=== PATIENT | female | born 1940 | race Caucasian/White ===

== ENCOUNTER 2017-09-03 06:40 | Day surgery (SDC) | payer MEDICARE, BC ==
[2017-09-03] MEDS ORDERED: Glycopyrrolate 0.2 MG/ML 2 ML SDV IVPUSH ONE (07:30)
[2017-09-03] MEDS ORDERED: Cyanocobalamin (Vitamin B12) 1,000 MCG/ML SDV IM ONE (07:30)
[2017-09-03] MEDS ORDERED: Lactated Ringers 1,000 ML IV SCH (07:30)
[2017-09-03] MEDS ORDERED: Propofol 200 MG/20 ML SDV ONE (07:49)
[2017-09-03] MEDS ORDERED: fentaNYL 100 MCG/2 ML SDV ONE (07:49)
[2017-09-03] MEDS ORDERED: MVI, Adult with Vitamin K 10 ML, Thiamine 200 MG, Chromium/Copper/Mang/Selen/Zn 1 ML in... IV ONE ×8 (08:15→08:30)
[2017-09-03] MEDS ORDERED: MVI, Adult with Vitamin K 10 ML, Thiamine 200 MG, Chromium/Copper/Mang/Selen/Zn 1 ML in... IV SCH ×4 (08:30)
[2017-09-03 09:57] VITALS: BP 153/78
--- NOTE | 2017-09-04 11:58 | OR ---
DATE OF PROCEDURE: 09/03/2017 PREOPERATIVE DIAGNOSIS: Severe gastroesophageal reflux symptoms, status post placement of adjustable gastric band. POSTOPERATIVE DIAGNOSES: Marked dilation of esophagus above laparoscopic adjustable gastric band with marked esophageal inflammation and retained esophageal gastric food and fluid. OPERATIVE PROCEDURES: Esophagogastroduodenoscopy with; 1. Removal of foreign body (retained food above band), (21638). 2. Biopsies of antrum for CLOtest, (20410). ANESTHESIA: IV sedation. INDICATIONS FOR PROCEDURE: The patient is status post placement of laparoscopic adjustable gastric band. She presents now with progressive worsening of reflux symptoms. She also reports that she is having quite a bit of coughing and appears to probably been having some episodes of aspiration of esophageal contents, particularly when she is sleeping, and the plan is to proceed with upper GI endoscopy with biopsies as indicated. Potential risks including bleeding and perforation were discussed, and the patient wishes to proceed. DETAILS OF PROCEDURE: The patient was taken to the operating room and placed in a left lateral decubitus position. IV sedation was administered, after which the upper GI endoscope was passed orally through the length of the esophagus and into the stomach with retroflexion view of the fundus, and thereafter through the pyloric channel and into the junction of the third and fourth portions of the duodenum. Findings included markedly diffuse dilation of the esophagus. This was contained of some both solid and liquid food as well as some bile within the esophagus, as well as the gastric pouch above the imprint of the band. The distal one-third of the esophagus and the gastric mucosa above the band were diffusely reddened and friable and easily bled with any abrasion of the scope even in a gentle manner across the surface. The band had been completely deflated, and there was no mechanical obstruction through the imprint of the band, i.e. there was no mechanical obstruction causing the above problem. The remainder of the stomach and duodoneal was unremarkable. Biopsies were obtained from the antrum and sent for CLOtest for H pylori. The food which had been present in the area above the band was mobilized downward away out of the esophagus to limit aspiration risk in the immediate postprocedure period. The scope was then withdrawn. Following this, later in the day, discussion was held with the patient and family. This appeared to be a fairly urgent situation in terms of removal of the band as she is likely to develop acute and chronic pulmonary complications as well as esophageal complications in the near term and the plan will be to have them come back on for band removal and conversion to the Sydney-en-Y gastric bypass. The latter, I think, will be important as she will be able to plan with the band now being deflated, she has gained 17 pounds in a relatively short period, and the gastric bypass will reverse that process. Canelo Lang MD /[id number]
== END 2017-09-03 10:42 | disposition home or self-care (01) ==
LOC: JP.SDS 06:40
PROVIDERS: ATTEND Surgery
DX: K21.9 Gastro-esophageal reflux disease without esophagitis (principal); K20.9 Esophagitis, unspecified; K22.8 Other specified diseases of esophagus; Z98.84 Bariatric surgery status
CPT/HCPCS: 36415; 43239; 43247; 80053; 83735; 83880; 84100; 85027; 86850; 86900; 86901; 87081; J2704; J3010; J3420; J7120; J3490

== ENCOUNTER 2017-09-06 05:31 | Inpatient (IN) | payer MEDICARE, BC ==
[~2017-09-06 05:31] MED LIST: Acetaminophen 500 MG Tab PO ONE; Celecoxib 200 MG Cap PO ONE; Gabapentin 300 MG Cap PO ONE; Scopolamine 1.5 MG Transdermal Patch TOP SCH
[2017-09-06] MEDS ORDERED: Dextrose 5%-Lactated Ringers 1,000 ML IV SCH (06:00)
[2017-09-06] MEDS ORDERED: cefOXitin 2 GM Vial ONE (06:44)
[2017-09-06] MEDS ORDERED: Bupivacaine 0.5%/EPINEPHrine 1:200,000 50 ML MDV ONE (06:45)
[2017-09-06] MEDS ORDERED: Albuterol/Ipratropium 3.0-0.5 MG/3 ML Neb Soln NEB ONE (07:00)
[2017-09-06] MEDS ORDERED: cefOXitin 2 GM in Sodium Chloride 0.9% 50 ML IV ONE (07:00)
[2017-09-06] MEDS ORDERED: fentaNYL 250 MCG/5 ML SDV ONE ×2 (07:02→08:29)
[2017-09-06] MEDS ORDERED: Neostigmine Methylsulfate 1 MG/ML 5 ML Syringe ONE (07:02)
[2017-09-06] MEDS ORDERED: Dexamethasone 4 MG/ML SDV ONE (07:02)
[2017-09-06] MEDS ORDERED: Succinylcholine 200 MG/10 ML MDV ONE (07:02)
[2017-09-06] MEDS ORDERED: Propofol 200 MG/20 ML SDV ONE (07:02)
[2017-09-06] MEDS ORDERED: Ondansetron 4 MG/2 ML SDV ONE (07:02)
[2017-09-06] MEDS ORDERED: Rocuronium 50 MG/5 ML Vial ONE ×2 (07:02→08:29)
[2017-09-06] MEDS ORDERED: Glycopyrrolate 0.2 MG/ML 5 ML MDV ONE (07:02)
[2017-09-06] MEDS ORDERED: Meropenem 500 MG SDV ONE ×2 (07:06→08:16)
[2017-09-06] MEDS ORDERED: Ketamine 500 MG/5 ML MDV IV SCH (07:30)
[2017-09-06] MEDS ORDERED: Lidocaine 0.4%/D5W 2 GM/500 ML BAG IV SCH (07:30)
[2017-09-06] MEDS ORDERED: Ropivacaine 50 ML, Dexamethasone 8 MG, EPINEPHrine 0.4 MG, Sodium Chloride 0.9% 27.6 ML NERVRT SCH ×4 (07:30)
[2017-09-06] MEDS ORDERED: Lidocaine 2% 100 MG/5 ML Syringe IVPUSH ONE (07:30)
[2017-09-06] MEDS ORDERED: HYDROmorphone/Normal Saline 15 MG/30 ML PCA IV PRN (08:32)
[2017-09-06] MEDS ORDERED: Naloxone 0.4 MG/ML SDV IV PRN (13:35)
[2017-09-06] MEDS ORDERED: Nitroglycerin 0.4 MG Tab.SL SL PRN (13:42)
[2017-09-06] MEDS ORDERED: diphenhydrAMINE 50 MG/ML SDV IVPUSH PRN (14:00)
[2017-09-06] MEDS ORDERED: Metoclopramide 10 MG/2 ML SDV IVPUSH PRN (14:00)
[2017-09-06] MEDS ORDERED: hydrOXYzine HCl 100 MG/2 ML SDV IM PRN (14:00)
[2017-09-06] MEDS ORDERED: Albuterol/Ipratropium 3.0-0.5 MG/3 ML Neb Soln INH PRN (14:00)
[2017-09-06] MEDS ORDERED: Labetalol 20 MG/4 ML Syringe IVPUSH PRN (14:00)
[2017-09-06] MEDS: cefOXitin 2 GM in Sodium Chloride 0.9% 50 ML IV SCH ×2 (14:19→21:00)
[2017-09-06] MEDS: Albuterol/Ipratropium 3.0-0.5 MG/3 ML Neb Soln INH SCH ×2 (14:48→21:02)
[2017-09-06] MEDS ORDERED: Pantoprazole 40 MG Vial IVPUSH SCH (16:00)
[2017-09-06] MEDS ORDERED: MVI, Adult with Vitamin K 10 ML, Thiamine 200 MG, Chromium/Copper/Mang/Selen/Zn 1 ML in... IV SCH ×4 (16:00)
[2017-09-06] MEDS: Gabapentin 250 MG/5 ML Solution ML 470 ML Bottle PO SCH ×2 (16:24→21:22)
[2017-09-06] MEDS: Acetaminophen Soln 650 MG/20.3 ML UD Cup PO SCH ×2 (16:24→21:20)
[2017-09-06] MEDS: Heparin Sodium 5,000 Units/ML Vial SUBCUT SCH (16:24)
[2017-09-06] MEDS: Ondansetron 4 MG/2 ML SDV IVPUSH PRN ×2 (16:33→20:50)
[2017-09-06] MEDS: Arformoterol 15 MCG/2 ML Neb Soln INH SCH (21:04)
[2017-09-06] MEDS: Budesonide 0.5 MG/2 ML Neb Susp INH SCH (21:11)
[2017-09-06] MEDS: Montelukast 10 MG Tab PO SCH (21:20)
[2017-09-06] MEDS: Dextrose 5%-Lactated Ringers 1,000 ML IV SCH (22:46)
[2017-09-07] MEDS: cefOXitin 2 GM in Sodium Chloride 0.9% 50 ML IV SCH ×5 (03:47→20:36)
[2017-09-07] MEDS: Acetaminophen Soln 650 MG/20.3 ML UD Cup PO SCH ×4 (03:50→21:07)
[2017-09-07] MEDS: Heparin Sodium 5,000 Units/ML Vial SUBCUT SCH ×2 (03:50→16:15)
[2017-09-07] MEDS ORDERED: Iohexol 647 MG/ML 50 ML SDV PO STA (04:08)
[2017-09-07] MEDS: Dextrose 5%-Lactated Ringers 1,000 ML IV SCH (04:57)
--- NOTE | 2017-09-07 07:08 | PCM.PN ---
- General Info Date of Service: 09/07/17 Admission Dx/Problem (Free Text): Obesity. Removal of gastric band. Subjective Update: Patient is POD #1, is up, ambulating, and urinating. The Abebe catheter was removed last night. She slept through the night and her vitals were stable. She did have an episode of vomiting with her first dose of pain medication from the FRUIT OR NUT GROWER although this was her only episode and she has used the FRUIT OR NUT GROWER since. She was experiencing blurred vision last night that subsided when the Lidocaine was discontinued. She will start today on a step 2 diet with nothing thicker than milk or a protein shake. Functional Status: Reports: Pain Controlled (Going to be switching to oral pain medication today.), Tolerating Diet, Ambulating, Urinating, Incentive Spirometry - Review of Systems General: Reports: No Symptoms HEENT: Reports: No Symptoms Pulmonary: Reports: No Symptoms Cardiovascular: Reports: No Symptoms Gastrointestinal: Reports: No Symptoms Genitourinary: Reports: No Symptoms Musculoskeletal: Reports: No Symptoms Skin: Reports: No Symptoms Neurological: Reports: No Symptoms Psychiatric: Reports: No Symptoms Systems Review Comment:: Remainder of ROS is negative for any pertinent positives or negatives. - Patient Data Vitals - Most Recent: Last Vital Signs Temp 99.3 F 09/07/17 02:00 Pulse 76 09/07/17 06:00 Resp 18 09/07/17 06:00 BP 171/68 H 09/07/17 06:00 Pulse Ox 91 L 09/07/17 06:00 Weight - Most Recent: 227 lb 12.8 oz I&O - Last 24 Hours: Intake & Output 09/06/17 09/07/17 09/07/17 22:59 06:59 14:59 Intake Total 1767 1532 Output Total 430 310 Balance 1337 1222 Lab Results Last 24 Hours: Laboratory Results - last 24 hr 09/07/17 09/07/17 09/07/17 Range/Units 05:21 05:21 05:21 WBC 14.0 H (4.5-11.0) K/uL RBC 4.58 (3.30-5.50) M/uL Hgb 12.6 (12.0-15.0) g/dL Hct 39.8 (36.0-48.0) % MCV 87 (80-98) fL MCH 28 (27-31) pg MCHC 32 (32-36) % Plt Count 251 (150-400) K/uL Neut % (Auto) 79 H (36-66) % Lymph % (Auto) 7 L (24-44) % [place] % (Auto) 14 H (2-6) % Eos % (Auto) 0 L (2-4) % Baso % (Auto) 0 (0-1) % Sodium 138 L (140-148) mmol/L Potassium 3.6 (3.6-5.2) mmol/L Chloride 104 (100-108) mmol/L Carbon Dioxide 26 (21-32) mmol/L Anion Gap 11.6 (5.0-14.0) mmol/L BUN 10 (7-18) mg/dL Creatinine 1.0 (0.6-1.0) mg/dL Est Cr Clr Drug Dosing 39.33 mL/min Estimated GFR (MDRD) 54 L (>60) Glucose 140 H (74-106) mg/dL Calcium 7.8 L (8.5-10.1) mg/dL Phosphorus 3.0 (2.5-4.9) mg/dL Magnesium 1.6 L (1.8-2.4) mg/dL Total Bilirubin 0.3 (0.2-1.0) mg/dL AST 47 H D (15-37) U/L ALT 56 D (12-78) U/L Alkaline Phosphatase 57 (46-116) U/L NT-Pro-B Natriuret Pep 50 (5-450) pg/mL Total Protein 6.2 L (6.4-8.2) g/dL Albumin 2.9 L (3.4-5.0) g/dL Globulin 3.3 (2.3-3.5) g/dL Albumin/Globulin Ratio 0.9 L (1.2-2.2) Med Orders - Current: Current Medications Acetaminophen (Tylenol) 650 mg PO Q6H [facility] Last Admin: 09/07/17 03:50 Dose: 650 mg Albuterol/Ipratropium (Duoneb 3.0-0.5 Mg/3 Ml) 3 ml INH QIDRT [facility] Last Admin: 09/06/17 21:02 Dose: 3 ml Albuterol/Ipratropium (Duoneb 3.0-0.5 Mg/3 Ml) 3 ml INH ASDIRECTED PRN PRN Reason: BREATHING Arformoterol Tartrate (Brovana) 15 mcg INH BIDRT [facility] Last Admin: 09/06/17 21:04 Dose: 15 mcg Budesonide (Pulmicort) 0.5 mg INH BIDRT [facility] Last Admin: 09/06/17 21:11 Dose: 0.5 mg Celecoxib (Celebrex) 200 mg PO DAILY@0800 [facility] Cyanocobalamin (Vitamin B12) 1,000 mcg IM ONETIME ONE Stop: 09/08/17 09:01 Diphenhydramine HCl (Benadryl) 25 - 50 mg IVPUSH Q4H PRN PRN Reason: ITCHING Gabapentin (Neurontin) 300 mg PO TID [facility] Last Admin: 09/06/17 21:22 Dose: 300 mg Heparin Sodium (Porcine) (Heparin Sodium) 5,000 units SUBCUT Q12H [facility] Last Admin: 09/07/17 03:50 Dose: 5,000 units Hydromorphone HCl (Dilaudid [employer] 15 Mg In Ns 30 Ml) 0 mg IV ASDIRECTED PRN; Protocol PRN Reason: Pain Last Admin: 09/06/17 08:59 Dose: 0.3 mg Hydroxyzine HCl (Vistaril) 75 - 100 mg IM Q4H PRN PRN Reason: pain Dextrose/Lactated Ringer's (Dextrose 5%-Lactated Ringers) 1,000 mls @ 175 mls/ hr IV ASDIRECTED [facility] Last Admin: 09/07/17 04:57 Dose: 175 mls/hr Multivitamins/Minerals 10 ml/Thiamine HCl 200 mg/ Chromium/Copper/Manganese/ Seleni/Zn 1 ml/ Dextrose/Lactated Ringer's 1,013 mls @ 175 mls/hr IV DAILY@ 1600 [facility] Last Admin: 09/06/17 16:35 Dose: 175 mls/hr Cefoxitin Sodium 2 gm/ Sodium (Chloride) 50 mls @ 100 mls/hr IV Q6H [facility] Last Admin: 09/07/17 03:47 Dose: 100 mls/hr Isosorbide Mononitrate (Imdur) 30 mg PO DAILY [facility] Labetalol HCl (Normodyne) 5 - 15 mg IVPUSH Q1H PRN PRN Reason: SBP over 160 OR DBP over 95 Metoclopramide HCl (Reglan) 10 mg IVPUSH Q6H PRN PRN Reason: NAUSEA NOT CONTROL BY ZOFRAN Miscellaneous Information (Remove Patch) 1 ea TRDERM ONETIME ONE Stop: 09/08/17 10:01 Montelukast Sodium (Singulair) 10 mg PO BEDTIME [facility] Last Admin: 09/06/17 21:20 Dose: 10 mg Naloxone HCl (Narcan) 0.1 mg IV ASDIRECTED PRN PRN Reason: decreased respiratory rate Nitroglycerin (Nitrostat) 0.4 mg SL ASDIRECTED PRN PRN Reason: CHEST PAIN Scopolamine Patch (Check) 1 each TOP DAILY [facility] Stop: 09/08/17 14:01 Ondansetron HCl (Zofran) 4 mg IVPUSH Q4H PRN PRN Reason: Nausea/Vomiting Last Admin: 09/06/17 20:50 Dose: 4 mg Pantoprazole Sodium (Protonix Iv) 40 mg IVPUSH Q24H [facility] [place] Last Admin: 09/06/17 16:25 Dose: 40 mg Scopolamine (Transderm-Scop) 1.5 mg TOP Q72H [facility] Stop: 09/09/17 05:00 Last Admin: 09/06/17 06:48 Dose: 1.5 mg Discontinued Medications Acetaminophen (Tylenol Extra Strength) 1,000 mg PO ONETIME ONE Stop: 09/06/17 05:31 Last Admin: 09/06/17 06:48 Dose: 1,000 mg Albuterol/Ipratropium (Duoneb 3.0-0.5 Mg/3 Ml) 3 ml NEB ONETIME ONE Stop: 09/06/17 07:01 Last Admin: 09/06/17 07:23 Dose: 3 ml Bupivacaine HCl/Epinephrine Bitart (Marcaine 0.5%/Epinephrine 1:200,000) Confirm Administered Dose 50 ml .ROUTE .STK-MED ONE Stop: 09/06/17 06:46 Cefoxitin Sodium (Mefoxin) Confirm Administered Dose 2 gm .ROUTE .STK-MED ONE Stop: 09/06/17 06:45 Celecoxib (Celebrex) 200 mg PO ONETIME ONE Stop: 09/06/17 05:31 Last Admin: 09/06/17 06:45 Dose: 200 mg Ropivacaine 50 ml/Dexamethasone 8 mg/Epinephrine HCl 0.4 mg/ Sodium Chloride 27.6 ml 0 ml NERVRT ASDIRECTED [facility] Last Admin: 09/06/17 07:55 Dose: 80 syringe Dexamethasone (Dexamethasone) Confirm Administered Dose 4 mg .ROUTE .STK-MED ONE Stop: 09/06/17 07:03 Fentanyl (Sublimaze) Confirm Administered Dose 250 mcg .ROUTE .STK-MED ONE Stop: 09/06/17 07:03 Fentanyl (Sublimaze) Confirm Administered Dose 250 mcg .ROUTE .STK-MED ONE Stop: 09/06/17 08:30 Gabapentin (Neurontin) 300 mg PO ONETIME ONE Stop: 09/06/17 05:31 Last Admin: 09/06/17 06:46 Dose: 300 mg Glycopyrrolate (Robinul) Confirm Administered Dose 1 mg .ROUTE .STK-MED ONE Stop: 09/06/17 07:03 Lidocaine HCl/Dextrose (Lidocaine 2 Gm/D5w 500 Ml) 2 gm in 500 mls @ 30 mls/hr IV .[id number] [facility] Stop: 09/07/17 00:09 Last Admin: 09/06/17 13:46 Dose: 2 mg/min, 30 mls/hr Ketamine HCl 100 mg/ Sodium (Chloride) 100 mls @ 15 mls/hr IV ASDIRECTED [facility] Dextrose/Lactated Ringer's (Dextrose 5%-Lactated Ringers) 1,000 mls @ 100 mls/ hr IV ASDIRECTED [facility] Last Admin: 09/06/17 06:49 Dose: 100 mls/hr Cefoxitin Sodium 2 gm/ Sodium (Chloride) 50 mls @ 100 mls/hr IV ONETIME ONE Stop: 09/06/17 07:29 Last Admin: 09/06/17 07:36 Dose: 100 mls/hr Iohexol (Omnipaque-300) 50 ml PO .ASDIRECTED [facility] Stop: 09/07/17 04:09 Last Admin: 09/07/17 04:21 Dose: 50 ml Ketamine HCl (Ketalar) 25 mg IV ASDIRECTED [facility] Lidocaine HCl (Xylocaine 2%) 100 mg IVPUSH ONETIME ONE Stop: 09/06/17 07:31 Last Admin: 09/06/17 18:47 Dose: Not Given Meropenem (Merrem) Confirm Administered Dose 500 mg .ROUTE .STK-MED ONE Stop: 09/06/17 07:07 Last Admin: 09/06/17 08:22 Dose: 500 mg Meropenem (Merrem) Confirm Administered Dose 500 mg .ROUTE .STK-MED ONE Stop: 09/06/17 08:17 Last Admin: 09/06/17 10:30 Dose: 500 mg Neostigmine Methylsulfate (Neostigmine) Confirm Administered Dose 5 mg .ROUTE .STK-MED ONE Stop: 09/06/17 07:03 Ondansetron HCl (Zofran) Confirm Administered Dose 4 mg .ROUTE .STK-MED ONE Stop: 09/06/17 07:03 Propofol (Diprivan 20 Ml) Confirm Administered Dose 200 mg .ROUTE .STK-MED ONE Stop: 09/06/17 07:03 Rocuronium [place] (Zemuron) Confirm Administered Dose 50 mg .ROUTE .STK-MED ONE Stop: 09/06/17 07:03 Rocuronium [place] (Zemuron) Confirm Administered Dose 50 mg .ROUTE .STK-MED ONE Stop: 09/06/17 08:30 Succinylcholine Chloride (Quelicin) Confirm Administered Dose 200 mg .ROUTE .STK -MED ONE Stop: 09/06/17 07:03 - Exam General: Alert, Oriented, Cooperative, No Acute Distress HEENT: Pupils Equal, Mucous Membr. Moist/[place] Neck: Supple Lungs: Clear to Auscultation, Normal Respiratory Effort Cardiovascular: Regular Rate, Regular Rhythm Extremities: Normal Range of Motion Skin: Warm, Dry, Intact Neurological: No New Focal Deficit Psy/Mental Status: Alert, Normal Affect, Normal Mood - Problem List Review Problem List Initiated/Reviewed/Updated: Yes - Assessment Assessment:: Status post open RNYGB and removal of gastric band. - Plan Plan:: 1.Step 2 diet no thicker than milk or a protein shake 2. Discontinue FRUIT OR NUT GROWER 3. Start oral pain medication Dilaudid 4. Discontinue pulse oximetry 5. Discontinue cardiac monitoring 6.Oral Care BID 7. Remove and Repalace Scopolamine patch qd 8. Start Celebrex 200mg PO QD scheduled 9. Discontinue Iohexol 10. Start Isosorbide Mononitrate 30mg po qd scheduled 11. Reevaluate prn or in the am
[2017-09-07] MEDS ORDERED: Ondansetron 4 MG Tab.DIS PO PRN (07:17)
[2017-09-07] MEDS ORDERED: Non-Formulary Medication 1 Each (Propylene Glycol/Peg 400 [Systane Liquid Gel Eye Drops] 1 EYEBOTH PRN (07:18)
[2017-09-07] MEDS: Budesonide 0.5 MG/2 ML Neb Susp INH SCH ×2 (07:21→20:54)
[2017-09-07] MEDS: Arformoterol 15 MCG/2 ML Neb Soln INH SCH (07:21)
[2017-09-07] MEDS: Albuterol/Ipratropium 3.0-0.5 MG/3 ML Neb Soln INH SCH ×4 (07:21→20:36)
[2017-09-07] MEDS ORDERED: Hypromellose 0.4% Ophth Soln 15 ML Bottle EYEBOTH PRN (07:28)
[2017-09-07] MEDS ORDERED: Dextrose 5%-Lactated Ringers 1,000 ML IV SCH (07:30)
[2017-09-07] MEDS: Celecoxib 200 MG Cap PO SCH (07:49)
[2017-09-07] MEDS: SCOPOLAMINE PATCH CHECK TOP SCH (08:33)
--- NOTE | 2017-09-07 08:43 | CR ---
UGI wo KUB HISTORY: eval R -Y GBP FINDINGS: After administration of oral contrast, upright views were obtained. Post operative changes gastric bypass. Surgical drains in place. No evidence for leak. There is some delay in passage of bar ium from the distal esophagus. This may represent some spasm IMPRESSION: No evidence for leak Delayed in emptying of the distal esophagus may be due to spasm.
[2017-09-07] MEDS: HYDROmorphone 2 MG Tab PO PRN ×2 (08:48→13:29)
[2017-09-07] MEDS: Primidone 50 MG Tab PO SCH ×3 (08:53→20:37)
[2017-09-07] MEDS: Aspirin 81 MG Tab.Chew PO SCH (08:53)
[2017-09-07] MEDS: Sertraline 50 MG Tab PO SCH (08:53)
[2017-09-07] MEDS: amLODIPine 10 MG Tab PO SCH (08:54)
[2017-09-07] MEDS: Isosorbide Mononitrate 30 MG Tab.ER PO SCH (08:54)
[2017-09-07] MEDS: Lisinopril 10 MG Tab PO SCH (08:54)
[2017-09-07] MEDS ORDERED: SERTRALINE HCL 150 MG PO SCH (09:00)
[2017-09-07] MEDS ORDERED: Isosorbide Mononitrate 30 MG Tab.ER PO SCH (09:00)
[2017-09-07] MEDS: Hydrochlorothiazide 12.5 MG Cap PO SCH (09:01)
[2017-09-07] MEDS: Ondansetron 4 MG/2 ML SDV IVPUSH PRN (09:24)
[2017-09-07] MEDS: Gabapentin 250 MG/5 ML Solution ML 470 ML Bottle PO SCH ×3 (11:59→20:36)
[2017-09-07] MEDS: Magnesium Sulfate/Water 2 GM in Premix Bag 1 BAG IV SCH ×3 (12:34→23:18)
[2017-09-07] MEDS ORDERED: MVI, Adult with Vitamin K 10 ML, Thiamine 200 MG, Chromium/Copper/Mang/Selen/Zn 1 ML in... IV SCH ×4 (16:00)
--- NOTE | 2017-09-07 17:41 | PN ---
DATE OF SERVICE: 09/07/2017 SUBJECTIVE: Marielena is postop day 1. She had an upper GI. There was some delay in the contrast going through. Her pain has been controlled. She did have some blurry vision, so the lidocaine was discontinued. Pain has been managed with a [employer] and vital signs stable. REVIEW OF SYSTEMS: Remainder of review of systems negative for any pertinent positives and negatives. OBJECTIVE: GENERAL: Marielena lebron is a pleasant 76-year-old female. VITAL SIGNS: TPR: Last temperature was 99.3 at 0200. The rest of the vitals were at 0600, pulse was 78, blood pressure 171/68, and respirations 18. HEENT: Negative. NECK: Supple. HEART: Regular rate and rhythm. LUNGS: Clear. ABDOMEN: Dressings dry and intact. Abdominal binder is on and BRAEDEN drain put out 90 mL of a light pink serosanguineous drainage. EXTREMITIES: Without peripheral edema. ASSESSMENT: Removal of laparoscopic gastric band system, laparotomy with conversion to Sydney- en-Y gastric bypass surgery. Date of surgery, 09/06/2017. PLAN: 1. Decrease IV to 100 mL per hour. 2. Discontinue [employer]. 3. Dilaudid 2 mg 1 to 2 every 4 hours p.r.n. pain. 4. DC Brovana. 5. DC continuous pulse ox. 6. Home medication restarted Norvasc 10 mg p.o. daily, aspirin 81 mg p.o. daily, hydrochlorothiazide 12.5 mg p.o. daily, magnesium 2 g IV q.6 hours x72 hours. 7. Singulair 10 mg at bedtime. 8. Zofran 4 mg ODT q.4 hours p.r.n. nausea. 9. Sertraline 150 mg p.o. daily. 10. 50 mg p.o. t.i.d. scheduled. 11.Step 1 gastric bypass diet with milk. The patient will be going home with this for approximately 2 weeks. 12.Good pulmonary toilet. 13.We will evaluate p.r.n. or in a.m. Jess Morris PA-C /[id number]
[2017-09-07] MEDS: Pantoprazole 40 MG Delayed-Release Granules 1 Packet PO SCH (17:42)
[2017-09-07] MEDS: Montelukast 10 MG Tab PO SCH (20:37)
[2017-09-07] MEDS ORDERED: Montelukast 10 MG Tab PO SCH (21:00)
[2017-09-08] MEDS: cefOXitin 2 GM in Sodium Chloride 0.9% 50 ML IV SCH (02:22)
[2017-09-08] MEDS: Acetaminophen Soln 650 MG/20.3 ML UD Cup PO SCH ×4 (03:47→21:24)
[2017-09-08] MEDS: Heparin Sodium 5,000 Units/ML Vial SUBCUT SCH ×2 (03:47→15:31)
[2017-09-08] MEDS: Magnesium Sulfate/Water 2 GM in Premix Bag 1 BAG IV SCH (05:22)
[2017-09-08] MEDS: Albuterol/Ipratropium 3.0-0.5 MG/3 ML Neb Soln INH SCH ×4 (07:09→21:23)
[2017-09-08] MEDS: Budesonide 0.5 MG/2 ML Neb Susp INH SCH ×2 (07:09→21:24)
[2017-09-08] MEDS: Sertraline 50 MG Tab PO SCH (08:48)
[2017-09-08] MEDS: Primidone 50 MG Tab PO SCH ×3 (08:51→21:23)
[2017-09-08] MEDS: Aspirin 81 MG Tab.Chew PO SCH (08:51)
[2017-09-08] MEDS: Celecoxib 200 MG Cap PO SCH (08:51)
[2017-09-08] MEDS: Hydrochlorothiazide 12.5 MG Cap PO SCH (08:51)
[2017-09-08] MEDS: Isosorbide Mononitrate 30 MG Tab.ER PO SCH (08:52)
[2017-09-08] MEDS: amLODIPine 10 MG Tab PO SCH (08:52)
[2017-09-08] MEDS: SCOPOLAMINE PATCH CHECK TOP SCH (08:53)
[2017-09-08] MEDS: Gabapentin 250 MG/5 ML Solution ML 470 ML Bottle PO SCH ×3 (08:53→21:23)
[2017-09-08] MEDS: Lisinopril 10 MG Tab PO SCH (08:53)
[2017-09-08] MEDS ORDERED: Cyanocobalamin (Vitamin B12) 1,000 MCG/ML SDV IM ONE (09:00)
[2017-09-08] MEDS ORDERED: Dextrose 5%-Lactated Ringers 1,000 ML IV SCH (09:15)
[2017-09-08] MEDS ORDERED: Magnesium Hydroxide 400 MG/5 ML Susp 30 ML Cup PO ONE (09:30)
[2017-09-08] MEDS: Bisacodyl 5 MG Tab PO SCH ×2 (12:13→21:21)
[2017-09-08] MEDS: Pantoprazole 40 MG Delayed-Release Granules 1 Packet PO SCH (17:00)
[2017-09-08] MEDS: Montelukast 10 MG Tab PO SCH (21:24)
[2017-09-09] MEDS: Acetaminophen Soln 650 MG/20.3 ML UD Cup PO SCH ×2 (03:56→11:19)
[2017-09-09] MEDS: Heparin Sodium 5,000 Units/ML Vial SUBCUT SCH (03:56)
[2017-09-09] MEDS: Budesonide 0.5 MG/2 ML Neb Susp INH SCH (07:07)
[2017-09-09] MEDS: Albuterol/Ipratropium 3.0-0.5 MG/3 ML Neb Soln INH SCH ×2 (07:07→10:46)
[2017-09-09] MEDS: Aspirin 81 MG Tab.Chew PO SCH (08:23)
[2017-09-09] MEDS: Celecoxib 200 MG Cap PO SCH (08:23)
[2017-09-09] MEDS: Bisacodyl 5 MG Tab PO SCH (08:23)
[2017-09-09] MEDS: Primidone 50 MG Tab PO SCH (08:23)
[2017-09-09] MEDS: amLODIPine 10 MG Tab PO SCH (08:24)
[2017-09-09] MEDS: Lisinopril 10 MG Tab PO SCH (08:24)
[2017-09-09] MEDS: Hydrochlorothiazide 12.5 MG Cap PO SCH (08:24)
[2017-09-09] MEDS: Isosorbide Mononitrate 30 MG Tab.ER PO SCH (08:25)
[2017-09-09] MEDS: Sertraline 50 MG Tab PO SCH (08:25)
[2017-09-09 10:40] VITALS: BP 136/58
[2017-09-09] MEDS ORDERED: Loperamide 2 MG Cap PO PRN (11:03)
[2017-09-09] MEDS: Gabapentin 250 MG/5 ML Solution ML 470 ML Bottle PO SCH (11:19)
--- NOTE | 2017-09-09 11:34 | PN ---
DATE OF SERVICE: 09/08/2017 The patient has been afebrile with stable vital signs. We will try to get that weaned off today. Otherwise, we will give her some bowel stimulation, get her activity up to baseline as much as possible. She may be ready for discharge home tomorrow. Canelo Lang MD /[id number]
--- NOTE | 2017-09-10 08:50 | OR ---
DATE OF PROCEDURE: 09/06/2017 PREOPERATIVE DIAGNOSES: Intolerance to laparoscopic adjustable gastric band with associated esophageal dilation and intermittent pulmonary aspiration. POSTOPERATIVE DIAGNOSES: 1. Intolerance to laparoscopic adjustable gastric band with associated esophageal dilation and intermittent pulmonary aspiration. 2. Dense adherence of a portion of the left lobe of the liver to the band. 3. Extensive intraabdominal adhesions necessitating: a. Repair of area of small bowel deserosalization. b. Separate small bowel resection. OPERATIVE PROCEDURES: 1. Diagnostic laparoscopy converted to laparotomy with lysis of extensive adhesions and: a. Formation of Sydney-en-Y gastric bypass with a long limb gastroenterostomy (28450). b. Removal of laparoscopic adjustable gastric band system (05772). c. Separate small bowel resection (97763). d. Repair of area of small bowel deserosalization (38630). e. Partial left hepatic lobectomy (83496). ANESTHESIA: General. ASSISTANTS: Jess Morris PA-C and PAS. Zachary INDICATION FOR PROCEDURE: This is a 76-year-old status post previous laparoscopic adjustable gastric band placement, presenting with progressive intolerance to the band as outlined in the preoperative documentation. Plan is to proceed with a laparoscopy with possible laparotomy, removal of the band system, and conversion to Ysdney-en-Y gastric bypass status. The possibility of needing an open procedure, due to the underlying mesh, was reviewed with the patient and family, and they wished to proceed. Otherwise, the potential risks including bleeding, infection, injury to underlying viscera, problems with bowel obstruction over time, as well as the possibility of cardiopulmonary, septic, or hemorrhagic complications leading to were discussed, and the patient wishes to proceed. DETAILS OF PROCEDURE: The patient was taken to the operating room and placed in a supine position. After general endotracheal anesthesia was induced, she was converted to a lithotomy position and a Abebe catheter was inserted and the abdomen was prepped and draped. A left lower quadrant transverse incision was made and the peritoneal cavity entered under direct vision with Optiview trocar and inflated to 15 mmHg pressure with CO2. The patient was noted to have florid adhesions to the area of the mesh, including the bowel directly adherent to the mesh. Given this, the trocars were removed and the decision was made to proceed with an open laparotomy. At that point, using an ultrasound, bilateral subcostal transversus abdominis plane blocks were placed using continuous ultrasound for the needle placement and injection of the standard solution bilaterally. An upper midline incision from the xiphoid to the umbilicus was then made and carried down through the skin and subcutaneous tissue. In the lower three fourths of the incision, underlying mesh was encountered, and this was divided. At this point, the area around the band was encountered. Some adhesions to the band were then taken down with electrocautery, along with Harmonic Scalpel, and at that point, the band was freed up, other than it was densely adherent to the left lobe of the liver. Rather than create a ragged opening by simply dissecting off of that area, it was felt that resection of the lateral aspect of the left lobe of the liver would be appropriate, and this was then accomplished using a ROBBIE stapler. This resulted in a secure staple line, which would not likely bleed or have bile leaks developed. The band was then divided and removed. The port tubing was cut just inside the port connector, and the intraabdominal components of the band were then delivered from the field. At this point, using ROBBIE black loads, a staple line was constructed just below the imprint of the band, initially in a transverse orientation and then upward toward the angle of His, and it appeared to result in satisfactory formation of the proximal gastric pouch. Attention was then taken to the formation of the Sydney limb. The patient was noted to have one area of small bowel that was densely adherent to the mesh, and this was deserosalized to the extent that a small bowel resection was required. This was accomplished with ROBBIE araseli proximal and distal to the area of involvement, and the underlying mesentry was then divided with ROBBIE loads and then specimen delivered from the field. GI tract continuity was then accomplished with a [id number] enteroenterostomy with a 60 mm ROBBIE stapler, the wound was closed transversely with same stapler and the angles anastomosed, and mesenteric defect were approximated with some 0 Ethibond stitch, along with a fibrin sealant. One area of additional small bowel was deserosalized over a shorter segment. This area was then grasped with the Butler forceps and a transverse firing of the ROBBIE stapler resulting in minimal decrease in the amount of bowel lumen noted. At that point, the bowel was mapped out. The patient apparently had some previous small bowel resections, and her overall small bowel length was fairly low. At this point, we decided to proceed with construction of the Sydney limb. At this point, by mapping out the limb lengths of the Sydney-en-Y gastrojejunostomy, we would be set up such that the biliopancreatic limb was 40 cm, the Sydney limb 90 cm, and the common limb would then be 260 cm. The bowel at the point of the small bowel 40 cm distal to the ligament of Treitz was then divided. The Sydney limb was mapped out again for 90 cm, and at that point, the side-to- side enteroenterostomy was accomplished with internal firing of the ROBBIE stapler. Common opening was then closed transversely with same stapler, angles anastomosed, and mesenteric defect approximated with some 3-0 Vicryl stitch. The Sydney limb was then routed through a gastric retrocolic tunnel and easily came up to the area of the proximal gastric pouch. The pouch was initially intentionally left somewhat long so that we get a larger ROBBIE stapler, to limit postoperative stricture formation. The divided end of this pouch was then opened, and the anvil of a 28 mm EEA stapler was passed up into the stomach above that, and the end of the pouch was then re-closed. This allowed us to bring the shaft of the anvil out through the area just posterior of the staple line. The main body of the EEA stapler was then brought through an opening at the end of the Sydney limb, brought up to the pouch and united with the anvil, and the gastrojejunostomy was then constructed. Upon removal of the stapler, double donuts of the mucosa were noted within it. Small bowel was closed off with a vascular staple line. Gastrojejunostomy was reinforced with some 3-0 Vicryl seromuscular stitch, along with fibrin sealant. The point where the Sydney limb came through the transverse mesocolon was then reinforced with some 3-0 Vicryl stitch as well. At this point, no further problems were noted. During the course of the bowel work, the divided mesh was cordoned off with meropenem-containing gauze, and upon completion of the bowel segment of the procedure, new gloves were undertaken and a closing king then initiated with new instruments. The area was irrigated with meropenem-containing saline solution. A Lj-Cabrera drain was placed through a stab wound in the left mid abdomen and taken into the area of the gastrojejunostomy. The mesh was then reapproximated with a running 0 Prolene stitch, and over this, the fascia was then closed with a #2 Vicryl stitch, and the subcutaneous tissue closed with 2 layers of 3-0 Vicryl stitch deep and araseli for the skin. Dressing was applied. The patient was taken to the recovery room in satisfactory condition. Physician [employer] Administrator, Jess Morris, played an essential role in assisting in this case, helping to position the patient, retract structures as needed, as well as suturing and cutting sutures when indicated. Her presence improved the patient's safety and decreased the operative time. Canelo Lang MD /[id number]
--- NOTE | 2017-09-10 09:35 | DISCH ---
FINAL DIAGNOSES: 1. Intolerance of laparoscopic adjustable gastric band with esophageal dilation and intermittent pulmonary aspiration. 2. Dense adherence of portion of the left lobe of the liver to band. 3. Extremely extensive intra-abdominal adhesions with resultant areas of deserosalization of small bowel. OPERATIVE PROCEDURES: Diagnostic laparotomy converted to laparotomy with lysis of extensive adhesions and; 1. Formation of [place]-en-Y gastric bypass. 2. Removal of laparoscopic adjustable gastric band system. 3. Separate small bowel resection. 4. Repair of area of small bowel deserosalization. 5. Partial left hepatic lobectomy. SECONDARY DIAGNOSES: 1. Bariatric surgery status. 2. History of esophageal reflux. 3. History of sleep apnea. 4. History of depression. 5. History of coronary artery disease. 6. History of osteoarthritis. HOSPITAL COURSE: This is a 76-year-old presenting with progressive intolerance to laparoscopic adjustable gastric band system with epigastric complications involving the esophageal dilation and intermittent aspiration of the pulmonary contents as well as severe reflux-type symptoms. On the date of admission, the patient underwent initial laparoscopy and was found to have quite extensive adhesions and was converted to a laparotomy. This then involved division of some mesh, which was carefully walled off during the open GI tract portions of the procedure and it was closed at the time of the abdominal wall closure. The patient underwent the above operations. The liver was extremely adherent to the band requiring a partial left hepatic lobectomy, which was done to avoid a ragged open edge of the liver, which would otherwise be prone to bleed and having problems with potential bile leaks. Postoperatively, the patient has done well. She is moving her bowels quite frequently at this point. We will check a C. difficile enterotoxin prior to being discharged. Assuming that it is negative, we will send her home with some Imodium as well. Otherwise, she will be remaining on her previous home medications plus Celebrex 200 mg p.o. daily x2 weeks, gabapentin liquid 300 mg p.o. t.i.d. x2 weeks, and then the Imodium 2 mg q.6 hours p.r.n. pain, #30, with refill x1. She will be following up with Jess Morris in [facility] on 09/17/2017. [facility], Chanel Florez MD
== END 2017-09-09 12:27 | disposition home or self-care (01) | DRG 327 ==
LOC: JP.SDS 05:31 → JP.SDSSCHI 05:31 → EDSTATUS 07:15 → JP.2SS 09:30
PROVIDERS: ADMIT Surgery; ATTEND Surgery
PROC: 0D160ZA Bypass Stomach to Jejunum, Open Approach (ICD-10-PCS; principal; 2017-09-06)
PROC: 0DP60CZ Removal of Extraluminal Device from Stomach, Open Approach (ICD-10-PCS; 2017-09-06)
PROC: 0DJW4ZZ Inspection of Peritoneum, Percutaneous Endoscopic Approach (ICD-10-PCS; 2017-09-06)
PROC: 0DNW0ZZ Release Peritoneum, Open Approach (ICD-10-PCS; 2017-09-06)
PROC: 0FN00ZZ Release Liver, Open Approach (ICD-10-PCS; 2017-09-06)
PROC: 0FB20ZZ Excision of Left Lobe Liver, Open Approach (ICD-10-PCS; 2017-09-06)
PROC: 0DB80ZX Excision of Small Intestine, Open Approach, Diagnostic (ICD-10-PCS; 2017-09-06)
PROC: 0DQ80ZZ Repair Small Intestine, Open Approach (ICD-10-PCS; 2017-09-06)
PROC: 3E0T3BZ Introduction of Anesthetic Agent into Peripheral Nerves and Plexi, Percutaneous Approach (ICD-10-PCS; 2017-09-06)
DX: K95.09 Other complications of gastric band procedure (principal); K91.2 Postsurgical malabsorption, not elsewhere classified; Z53.31 Laparoscopic surgical procedure converted to open procedure; Y83.8 Other surgical procedures as the cause of abnormal reaction of the patient, or of later complication, without mention of misadventure at the time of the procedure; Y92.009 Unspecified place in unspecified non-institutional (private) residence as the place of occurrence of the external cause; K22.8 Other specified diseases of esophagus; K66.0 Peritoneal adhesions (postprocedural) (postinfection); I10 Essential (primary) hypertension; Z98.84 Bariatric surgery status; K21.9 Gastro-esophageal reflux disease without esophagitis; F32.9 Major depressive disorder, single episode, unspecified; M19.90 Unspecified osteoarthritis, unspecified site; I25.10 Atherosclerotic heart disease of native coronary artery without angina pectoris; E53.8 Deficiency of other specified B group vitamins; E53.9 Vitamin B deficiency, unspecified; E55.9 Vitamin D deficiency, unspecified; R12 Heartburn; G47.30 Sleep apnea, unspecified
CPT/HCPCS: 36415; 74240; 74240-26; 80053; 82962; 83735; 83880; 84100; 85025; 86850; 86900; 86901; 87493; 93005; 94640; 94762; A9270-GY; C9113; J0171; J0330; J0694; J1100; J1170; J1644; J2001; J2185; J2405; J2704; J2710; J2795; J3010; J3411; J3420; J3475; J7030; J7042; J7050; J7605; J7620; Q9967